=== PATIENT | male | born 1980 | race Caucasian/White ===

== ENCOUNTER → 2020-01-01 | Outpatient (CLI) | payer OTHER ==
[~2020-01-01] MED LIST: NORCO 5-325 TA1 EACH PO
--- NOTE | 2020-01-06 07:09 | SLEEP ---
[address] [address] SLEEP STUDY REPORT Name: LANCE ARANGO Room: [facility]#: [id number] Admission: 01/01/20 Attend Phys: Kevin Tai MD Discharge: Date of : 80 Report #: [id number] THIS REPORT FOR: //name// CC: Kevin Tai MD This study has been reviewed in its entirety by a board certified sleep specialist DATE OF SERVICE: 01/01/2020 SLEEP STUDY REFERRING PHYSICIAN: Kevin Tai MD The patient is 39 years old who weighs 190 pounds with a BMI of 27.3. The patient's De Borgia score was 7. The patient underwent home sleep study performed at [facility]. Total recording time was 515 minutes. During the night study, the patient had 2 obstructive apneas, no central or mixed apneas and 18 hypopneas. The patient's AHI for the entire night was 2.4 per hour. Nocturnal oximetry study revealed an average oxygen saturation of 92% with lowest of 88%. Mean heart rate was 75 beats per minute with a maximum of 111 beats per minute. IMPRESSION: 1. No clinically significant sleep disorder breathing. The patient's AHI for the entire night was 2.4 per hour. 2. No clinically significant nocturnal hypoxia. RECOMMENDATIONS: 1. The patient does not meet the criteria for CPAP initiation. 2. Weight loss to the ideal body weight is recommended. 3. Avoid [employer] depressants. <ELECTRONICALLY SIGNED> By: Hussein Hernandez MD 01/06/20 [id number] Hernandez MD /nt
== END ==
LOC: M.SLEEPLAB 09:00
DX: R06.81 Apnea, not elsewhere classified (principal)